=== PATIENT | male | born 1990 | race Caucasian/White ===

== ENCOUNTER 2018-08-16 03:01 | Emergency (ER) | payer OTHER ==
[~2018-08-16] VITALS: Ht 167.6 cm; Wt 80.0 kg
[2018-08-16 05:22] VITALS: BP 126/77
== END 2018-08-16 05:24 | disposition home or self-care (01) ==
LOC: ED 05:18
DX: T58.91XA Toxic effect of carbon monoxide from unspecified source, accidental (unintentional), initial encounter (principal); Y92.9 Unspecified place or not applicable; J70.5 Respiratory conditions due to smoke inhalation
CPT/HCPCS: 36415; 82375; 99283